=== PATIENT | female | born 1975 | race Caucasian/White ===

== ENCOUNTER → 2017-01-15 | Outpatient (CLI) | payer OTHER ==
[~2017-01-15] MED LIST: ACCUPRIL20TAB PO; AZO-STANDARD95 MG PO; CATAFLAM50 MG PO; COLACE 100100 MG/CAP PO; FASTIN30 MG PO; GLUCOPHAGE XR500 M1 PO; GLUCOPHAGE850 MG/TAB PO; HCTZ12.5TAB PO; MULTIPLE VITAMI1 CAP PO; Metformin PO; NEXIUM 40MG40 MG PO; PERCOCET 325 MG1 TA2 PO; PHENTERMINE15 MG PO; Potassium Citrate PO; TOPAMAX 25MG25 M1 PO; UROCIT-K 1010 MEQ PO; UROCIT-K 5540 MG/TAB PO; VITAMIN D31000 IU PO; Vitamin D3 PO; ZYLOPRIM 100MG100 MG PO; ZYLOPRIM 300MG300 MG PO
== END ==
LOC: MC.RAD 08:49
DX: Z12.31 Encounter for screening mammogram for malignant neoplasm of breast (principal); N64.89 Other specified disorders of breast

== ENCOUNTER → 2019-10-20 | Outpatient (CLI) | payer BC | LOC: MC.RAD 08-26 17:00 | DX: Z12.31 Encounter for screening mammogram for malignant neoplasm of breast (principal) ==

== ENCOUNTER 2020-04-27 16:00 | Outpatient (RCR) | payer BC | END 2020-04-28 10:11 | disposition home or self-care (01) | LOC: WSC 16:00 | DX: M17.12 Unilateral primary osteoarthritis, left knee (principal) ==

== ENCOUNTER → 2022-06-29 | Outpatient (CLI) | payer BC | LOC: DIA.ED 11:02 | DX: E11.9 Type 2 diabetes mellitus without complications (principal); I10 Essential (primary) hypertension | CPT/HCPCS: G0108 ==

== ENCOUNTER → 2022-07-13 | Outpatient (CLI) | payer BC | LOC: DIA.ED 14:06 | DX: E11.9 Type 2 diabetes mellitus without complications (principal); I10 Essential (primary) hypertension ==